=== PATIENT | male | born 1980 | race Caucasian/White ===

== ENCOUNTER 2020-12-25 13:53 | Inpatient (IN) | payer OTHER, SELFPAY ==
--- NOTE | ~2020-12-25 | XR_ITS ---
EXAMINATION: XR KNEE, LEFT CLINICAL INFORMATION: large reddened area behind his left knee, COMPARISON: None TECHNIQUE: Four views of the left knee. FINDINGS: Bones and soft tissues are normal. No fracture or joint effusion. Alignment is anatomic. Joint spaces are well maintained. No abnormal soft tissue calcification. XR/XR knee LT 4V IMPRESSION: Normal left knee.
--- NOTE | ~2020-12-25 | US_ITS ---
EXAMINATION: Left leg ultrasound soft tissue CLINICAL INFORMATION: Left leg cellulitis evaluate for abscess. COMPARISON: X-ray the left knee performed earlier same day. TECHNIQUE: Targeted ultrasound of the left popliteal fossa in the area of reported skin redness. FINDINGS: Edema noted in the subcutaneous soft tissues. No fluid collection noted. US/US extremity nonvascular IMPRESSION: Subcutaneous edema. No focal fluid collection
[2020-12-25 14:15] VITALS: BP 113/77; PULSE 78; RESP 20; TEMP 37.2; O2SAT 96; BMI 26.6
[2020-12-25 15:11] LABS: MANUAL DIFF FLAG NO
[2020-12-25 15:15] LABS: Basophils Percent Auto 0.5 % (0-2); Eosinophils Percent Auto 0.1 % (0-4); Hematocrit 45.2 % (42-52); Hemoglobin 15.2 g/dl (14.0-18.0); Imm Gran Abs Auto 0.03 X10*3/uL (0.00-0.03); Imm Gran Pct Auto 0.4 % (0.0-0.4); Lymphocytes Absolute Auto 1.3 X10*3/uL (1.2-4.9); Lymphocytes Percent Auto 17.4 % (20-40); Mean Corpuscular HGB Conc 33.6 g/dl (31.0-36.0); Mean Corpuscular Volume 86.1 fL (80-98); Mean Platelet Volume 9.8 fL (9.4-12.4); Monocytes Absolute Auto 0.6 X10*3/uL (0.1-1.2); Monocytes Percent Auto 8.4 % (2-11); Neutrophils Absolute Auto 5.3 X10*3/uL (2.0-8.3); Neutrophils Percent Auto 73.2 % (45-73); Platelet Count 154 X10*3/uL (160-400); Red Blood Count 5.25 X10*6/uL (4.60-5.80); Red Cell Distribution Width 12.8 % (11.0-16.0); White Blood Count 7.3 X10*3/uL (4.8-10.8)
[2020-12-25 15:34] LABS: Lactic Acid 0.8 mmol/L (0.5-2.0)
[2020-12-25 15:39] LABS: Alanine Aminotransferase 15 U/L (0-40); Albumin Level 4.6 g/dL (3.5-5.0); Alkaline Phosphatase 51 U/L (39-117); Anion Gap 14 (12-20); Aspartate Amino Transferase 20 U/L (5-37); Blood Urea Nitrogen 15 mg/dL (9-16); Calcium 9.4 mg/dL (8.4-10.2); Carbon Dioxide 26 mmol/L (22-29); Chloride 103 mmol/L (96-108); Creatinine Clr Calc Pharmacy 61.7; Estimated Glomerular Filt Rate 48; Glucose Random 89 mg/dL (60-115); Potassium 4.5 mmol/L (3.3-5.1); Sodium 138 mmol/L (135-145); Total Protein 7.4 g/dL (6.5-8.0)
--- NOTE | 2020-12-25 16:13 | ED_ITS ---
HPI - Skin/Abscess/Foreign Bdy General Chief complaint: Skin/Abscess/Foreign Body Stated complaint: cellulitis ?septic joint Time Seen by Provider: 12/25/20 14:30 Source: patient Mode of arrival: ambulatory Limitations: no limitations History of Present Illness HPI narrative: 40-year-old male with no significant past medical history presents with cellulitis to left lower extremity. Was treated with Bactrim and Keflex p.o. however the redness and pain has increased along with fevers, chills, and malaise. MD complaint: abscess/boil Onset (ago): day(s) Tetanus up to date: yes Location: LLE Severity: moderate Severity scale (1-10): 6 Quality: burning and aching Pain Consistency: constant Relieving factors: none Exacerbating factors: palpation and movement Associated symptoms: fever, chills and malaise Treatments prior to arrival: antibiotic Related Data Home Medications Medication Instructions Recorded Confirmed levothyroxine 75 mcg PO DAILY 12/25/20 12/25/20 Allergies Allergy/AdvReac Type Severity Reaction Status Date / Time No Known Allergies Allergy Verified 12/25/20 14:14 Review of Systems Review of Systems: Constitutional: Positive Fever, positive Chills ENT/Mouth: No Ear Pain, No Hoarseness, No sore throat Eyes: No Eye Pain, No Swelling, No Redness, No Foreign Body Cardiovascular: No Chest Pain, No SOB Respiratory: No Cough, No Dyspnea Gastrointestinal: No Nausea, No Vomiting, No Diarrhea, No abdominal Pain Genitourinary: No Dysuria, No Hematuria Musculoskeletal: positive left knee pain, No Myalgias, No Joint Swelling Skin: Positive cellulitis left knee, No Skin lacerations, No rash Neuro: No Weakness, No Numbness, No Paresthesias, No Loss of Consciousness, No Dizziness, No Headache Psych: No Anxiety/Panic, No Depression Heme/Lymph: no easy bruising, no Lymphadenopathy Endocrine: No Polyuria, No Polydipsia Yes all other systems are reviewed and are negative [facility] Past Medical History Attestation statement: The following information was validated with the patient. Source: old records reviewed Medical History Hypothyroidism Family History Family History (Updated 12/25/20 @ 17:52 by CLAIRE Dias) Mother CAD (coronary artery disease), Onset Age: 62 Social History Social History (Updated 12/25/20 @ 17:53 by CLAIRE Dias) Alcohol intake: current Alcohol intake frequency: a few times a week Alcohol type: beer Patient Tobacco Use Status: Never used Tobacco Use of substances other than those prescribed or required for medical reasons: No Advance Directives: No Advance Directives Information Provided: No Physical Exam Vital Signs: Vital Signs: Last Vital Signs Temp 98.5 F 12/25/20 18:01 Pulse 78 12/25/20 18:01 Resp 17 12/25/20 18:01 BP 132/83 12/25/20 18:01 Pulse Ox 98 12/25/20 18:01 Body Mass Index 26.6 Appearance: Alert. Oriented X3. Mild distress. Eyes: Pupils equal, round and reactive to light. ENT: Pharynx normal. Neck: Normal inspection. Neck supple. CVS: Normal heart rate and rhythm. Pulses normal. Respiratory: No respiratory distress. Breath sounds normal. Abdomen: Soft and nontender. Skin: 10 cm x 12 cm area of cellulitis to left popliteal, approximately 4 cm in diameter greater than surgical skin marker, Skin warm and dry. Normal skin col or. Normal skin turgor. Extremities: No lower extremity edema. Moves all extremities against resistance Neuro: No motor deficit. No sensory deficit. Cranial nerves 2-12 intact Course Course Course Narrative: 40-year-old male presents with worsening cellulitis to left lower extremity. Was on p.o. antibiotics for over 24 hours, Keflex and ceftriaxone, however the swelling, erythema, has increased along with pain, fever, chills and malaise. Will order doxycycline and vancomycin IV. Creat inine slightly elevated 1.59, no prior lab values for comparison, will resuscitate with 1 L of fluid. CBC and Chem 7 unremarkable however platelets are 154. X-ray does not have any concern for osteo or acute findings. 5:12 p.m. discussion with hospitalist Glenn, plan to admit for cellulitis. MDM - Skin/Abscess/Foreign Bdy Medical Records Attestation: I reviewed the patient's medical records. Lab Data Attestation: I reviewed the patient's lab results. Result diagrams: 12/25/20 15:01 12/25/20 15:01 Labs: Lab Results 12/25/20 12/25/20 12/25/20 Range/Units 15:01 15:01 15:01 WBC 7.3 (4.8-10.8) X10*3/uL RBC 5.25 (4.60-5.80) X10*6/uL Hgb 15.2 (14.0-18.0) g/dl Hct 45.2 (42-52) % MCV 86.1 (80-98) fL MCH 29.0 (27.0-33.0) pg MCHC 33.6 (31.0-36.0) g/dl RDW 12.8 (11.0-16.0) % Plt Count 154 L (160-400) X10*3/uL MPV 9.8 (9.4-12.4) fL Immature Gran % (Auto) 0.4 (0.0-0.4) % Neut % (Auto) 73.2 H (45-73) % Lymph % (Auto) 17.4 L (20-40) % [place] % (Auto) 8.4 (2-11) % Eos % (Auto) 0.1 (0-4) % Baso % (Auto) 0.5 (0-2) % Lymph # (Auto) 1.3 (1.2-4.9) X10*3/uL [place] # (Auto) 0.6 (0.1-1.2) X10*3/uL Eos # (Auto) 0.0 (0.0-0.4) X10*3/uL Baso # (Auto) 0.0 (0.0-0.2) X10*3/uL Abs Immat Gran (auto) 0.03 (0.00-0.03) X10*3/uL Absolute Neuts (auto) 5.3 (2.0-8.3) X10*3/uL Absolute Nucleated RBC 0.000 (0.0-0.012) X10*3/uL Nucleated RBC % (auto) 0.0 (0.0-0.2) /100WBC Sodium 138 (135-145) mmol/L Potassium 4.5 (3.3-5.1) mmol/L Chloride 103 (96-108) mmol/L Carbon Dioxide 26 (22-29) mmol/L Anion Gap 14 (12-20) BUN 15 (9-16) mg/dL Creatinine 1.59 H (0.5-1.4) mg/dL Estim Creat Clear Calc 61.7 Estimated GFR 48 Random Glucose 89 (60-115) mg/dL Lactic Acid 0.8 (0.5-2.0) mmol/L Calcium 9.4 (8.4-10.2) mg/dL Total Bilirubin 1.0 (0.0-1.0) mg/dL AST 20 (5-37) U/L ALT 15 (0-40) U/L Alkaline Phosphatase 51 (39-117) U/L Total Protein 7.4 (6.5-8.0) g/dL Albumin 4.6 (3.5-5.0) g/dL Imaging Data knee xray: Attestation: I personally reviewed and interpreted this imaging study as follows: Radiologist's impression: EXAMINATION: XR KNEE, LEFT CLINICAL INFORMATION: large reddened area behind his left knee, COMPARISON: None TECHNIQUE: Four views of the left knee. FINDINGS: Bones and soft tissues are normal. No fracture or joint effusion. Alignment is anatomic. Joint spaces are well maintained. No abnormal soft tissue calcification. XR/XR knee LT 4V IMPRESSION: Normal left knee. Critical Care Time Critical Care Time Critical Care Time: Yes Total Critical Care Time: 45 Attestation: I have personally provided critical care time exclusive of time spent on separately billable procedures. Time includes review of laboratory data, radiology results, discussion with consultants, and monitoring for potential decompensation. Interventions were performed as documented. Discharge Plan Discharge Clinical Impression: Cellulitis Qualifiers: Site of cellulitis: extremity Site of cellulitis of extremity: lower extremity Laterality: left Qualified Code(s): L03.116 - Cellulitis of left lower limb Patient Disposition: Admitted As Inpatient
[2020-12-25] MEDS: Doxycycline Hyclate 100 MG in 0.9 % Sodium Chloride 250 ML 166.67 MG IV (17:45)
--- NOTE | 2020-12-25 17:48 | P.HPHOSP_ITS ---
History of Present Illness Date of Service: 12/25/20 Chief Complaint: Left leg redness and swelling this is a 40-year-old male presents to the emergency department with increasing redness and swelling of his left leg. MondayDecember 20 he notice redness and swelling of his left lower extremity behind his left knee. This has been increasing over the past several days. He denies any bug bites, open wounds or trauma to the area. There has been no drainage. Yesterday he went to urgent care because the area of redness has increased and he it was becoming painful. He was diagnosed with cellulitis and given an IM dose of ceftriaxone in the office and discharged home with Keflex and Bactrim. Overnight he had worsening fevers and chills and this morning he noticed that the redness had spread far outside the marked area. He denies any known tick exposures himself although he has recently pulled ticks off of his children. In the emergency department he was afebrile. Lab work revealed no leukocytosis. Chemistry was significant for renal dysfunction with a creatinine of 1.59. he was treated with IV antibiotics and the decision was made to admit him to the hospital for further management. Review of Systems Review of Systems: Yes all other systems are reviewed and are negative Constitutional: Constitutional: Reports chills and Reports fever(s) Cardiovascular: Cardiovascular: Denies chest pain Respiratory: Respiratory: Denies cough Gastrointestinal: Gastrointestinal: Denies abdominal pain [facility] Medical History Hypothyroidism Functional capacity: independent ambulation Family History (Updated 12/25/20 @ 17:52 by CLAIRE Dias) Mother CAD (coronary artery disease), Onset Age: 62 Social History (Updated 12/25/20 @ 17:53 by CLAIRE Dias) Alcohol intake: current Alcohol intake frequency: a few times a week Alcohol type: beer Patient Tobacco Use Status: Never used Tobacco Use of substances other than those prescribed or required for medical reasons: No Advance Directives: No Advance Directives Information Provided: No Meds Allergies Allergy/AdvReac Type Severity Reaction Status Date / Time No Known Allergies Allergy Verified 12/25/20 14:14 Active Medications: Current Medications Generic Name Dose Route Start Last Admin Trade Name Freq PRN Reason Stop Dose Admin Doxycycline Hyclate 100 mg/ 250 mls @ 166.67 mls/hr 12/25/20 16:27 12/25/20 17:45 Sodium Chloride IV 12/25/20 17:56 166.67 mls/hr ONCE ONE Administration Lactated Ringer's 1,000 mls @ 100 mls/hr 12/25/20 17:46 Lr IVCONT .Q10H OLY Physical Exam Vital Signs and Narrative: Vital Signs: Last Vital Signs Temp 98.9 F 12/25/20 14:15 Pulse 78 12/25/20 14:15 Resp 20 12/25/20 14:15 BP 113/77 12/25/20 14:15 Pulse Ox 96 12/25/20 14:15 Body Mass Index 26.6 Const: Nutritional Appearance: well nourished Orientation/consciousness: patient oriented x3 HENMT: Head: Yes normocephalic and Yes atraumatic Eyes: Sclerae: sclerae normal Chest: Chest palpation & inspection: normal inspection of the chest Resp: Effort & Inspection: normal respiratory effort and no respiratory distress Auscultation: clear to auscultation bilaterally Cardio: Rate: regular rate Rhythm: regular rhythm GI: Palpation (GI): Soft to palpation and nontender Skin: Other: Neuro: General: patient oriented x3 Cranial nerves: Yes CN's II-XII intact bilaterally and Yes Bilaterally intact EOM present Results Labs CBC and Chem 7: 12/25/20 15:01 12/25/20 15:01 Labs: Laboratory Results - last 24 hr 12/25/20 12/25/20 12/25/20 15:01 15:01 15:01 MCV 86.1 MCH 29.0 MCHC 33.6 RDW 12.8 Plt Count 154 L MPV 9.8 Immature Gran % (Auto) 0.4 Neut % (Auto) 73.2 H Lymph % (Auto) 17.4 L [place] % (Auto) 8.4 Eos % (Auto) 0.1 Baso % (Auto) 0.5 Lymph # (Auto) 1.3 [place] # (Auto) 0.6 Eos # (Auto) 0.0 Baso # (Auto) 0.0 Abs Immat Gran (auto) 0.03 Absolute Neuts (auto) 5.3 Absolute Nucleated RBC 0.000 Nucleated RBC % (auto) 0.0 Anion Gap 14 Estim Creat Clear Calc 61.7 Estimated GFR 48 Random Glucose 89 Lactic Acid 0.8 Calcium 9.4 Total Bilirubin 1.0 AST 20 ALT 15 Alkaline Phosphatase 51 Total Protein 7.4 Albumin 4.6 Imaging Radiologist's Impressions: Impressions Knee X-Ray 12/25/20 14:30 IMPRESSION: Normal left knee. Assessment and Plan (1) Cellulitis: Qualifiers: Laterality: left Site of cellulitis: extremity Site of cellulitis of extremity: lower extremity Qualified Code(s): L03.116 - Cellulitis of left lower limb Status: Acute This is a healthy 40-year-old male who presents to the emergency department with increasing redness and swelling of his left lower extremity after being diagnosed with cellulitis. Left leg erythema likely cellulitis will check for lyme no evidence of sepsis -IV doxycyline will treat for both -soft tissue us to rule out abscess -pain control Renal Insufficiency in the setting of Bactrim use likely represents PURA although no baseline labs are available for comparison -IVF -follow BMP hypothyroidism continue meds when med rec completed dvt ppx - lovenox code status - full code Attending: Dr. Elizabeth Quality Stroke Does the patient have a stroke diagnosis?: No VTE Prior VTE?: No VTE Risk Level:: Medical - moderate - high VTE Device Contraindication: Treatment Not Indicated VTE Drug Contraindication: N/A - Med Ordered
--- NOTE | 2020-12-25 17:51 | PM.EVENT ---
Event Note Date of Service: 12/27/20 Event Note: addendum to H+P by CLAIRE Narvaez, 12/25/20: I interviewed and examined the patient. I discussed their presentation and management with the mid-level provider. I reviewed the history and physical and agree with the documentation, with the following additions and corrections: 40yo generally healthy M, PMHx only significant for hypothyroidism, presenting with erythema of L popliteal fossa. Given ceftriaxone IM + prescribed cephalexin + SMX/TMP in Urgent Care but developed fever to 102.5 and erythema is spreading centrifugally. No known tickbite but could certainly have been bitten; recently pulled ticks off of his children. Found to have renal dysfunction, SCr 1.59. Exam notable for round, well-demarcated area of erythema L popliteal fossa without central clearing and without purulence. Impression is of nonpurulent cellulitis versus erythema migrans. Would treat with doxycycline, give IV fluids + recheck BMP. Check Lyme titer though may be negative in early Lyme.
[2020-12-25 18:01] VITALS: BP 132/83; PULSE 78; RESP 17; TEMP 36.9; O2SAT 98
--- NOTE | 2020-12-25 18:06 | PHA.MEDREC ---
Pharmacy Consult ? Medication Reconciliation Pharmacy has completed the medication reconciliation.
[2020-12-25 18:27] LABS: COVID-19 Test Negative (Negative); IDNOW Serial# 9DD0AD1C
[2020-12-25] MEDS: vancomycin HCL 1,000 MG in 0.9 % Sodium Chloride 250 ML 270 MG IV (19:39)
[2020-12-25] MEDS: Lactated Ringers 1,000 ML 100 ML IVCONT (21:08)
--- NOTE | 2020-12-25 21:08 | PC.NURSE ---
LR UP AND RUNNING ON PUMP AT 100ML/HR PER EMAR. PT RESTING WITH FAMILY AT BEDSIDE. WILL CONTINUE TO MONITOR PT.
--- NOTE | 2020-12-26 00:25 | PC.NURSE ---
report to JUVE Kam. Pt to floor in w/c upon transfer to floor.
--- NOTE | 2020-12-26 00:52 | PC.NURSE ---
PT TO ROOM AT THIS TIME. PT LEFT ED IN NAD.
[2020-12-26 01:01] VITALS: BP 126/72; PULSE 76; RESP 18; TEMP 36.6; O2SAT 95
[2020-12-26] MEDS: Enoxaparin Sodium 40 MG/0.4 ML SYRINGE SUBCUT (02:15)
[2020-12-26 04:20] VITALS: BP 114/60; PULSE 72; RESP 18; TEMP 37.1; O2SAT 96
[2020-12-26] MEDS: Doxycycline Hyclate 100 MG in 0.9 % Sodium Chloride 250 ML 166.67 MG IV (05:01)
[2020-12-26] MEDS: Lactated Ringers 1,000 ML 100 ML IVCONT ×2 (05:03→16:54)
[2020-12-26 05:45] LABS: Anion Gap 11 (12-20); Blood Urea Nitrogen 14 mg/dL (9-16); Calcium 8.7 mg/dL (8.4-10.2); Carbon Dioxide 26 mmol/L (22-29); Chloride 106 mmol/L (96-108); Estimated Glomerular Filt Rate 51; Glucose Random 113 mg/dL (60-115); Potassium 4.2 mmol/L (3.3-5.1); Sodium 139 mmol/L (135-145)
[2020-12-26 07:11] VITALS: BP 118/74; PULSE 68; RESP 18; TEMP 36.6; O2SAT 96
--- NOTE | 2020-12-26 10:24 | P.PNIM_ITS ---
Subjective Subjective Date of Service: 12/26/20 <CLAIRE Dias - Last Filed: 12/26/20 10:30> 12/26/20 <Carlos Vazquez MD - Last Filed: 12/26/20 12:15> Interval History: seen and examined this morning no overnight events Reports improvement in pain in leg Denies fevers or chills at this time <CLAIRE Dias - Last Filed: 12/26/20 10:30> Review of Systems Review of Systems: Yes all other systems are reviewed and are negative <CLAIRE Dias - Last Filed: 12/26/20 10:30> Constitutional Constitutional: Denies chills and Denies fever(s) <CLAIRE Dias - Last Filed: 12/26/20 10:30> Cardiovascular Cardiovascular: Denies chest pain <CLAIRE Dias - Last Filed: 12/26/20 10:30> Respiratory Respiratory: Denies cough <CLAIRE Dias - Last Filed: 12/26/20 10:30> Gastrointestinal Gastrointestinal: Denies abdominal pain <CLAIRE Dias - Last Filed: 12/26/20 10:30> Physical Exam Vital Signs: Vital Signs: Last Vital Signs Temp 98 F 12/26/20 07:11 Pulse 68 12/26/20 07:11 Resp 18 12/26/20 07:11 BP 118/74 12/26/20 07:11 Pulse Ox 96 12/26/20 07:11 Body Mass Index 26.6 <CLAIRE Dias - Last Filed: 12/26/20 10:30> Const: Nutritional Appearance: well nourished <CLAIRE Dias - Last Filed: 12/26/20 10:30> Orientation/consciousness: patient oriented x3 <CLAIRE Dias - Last Filed: 12/26/20 10:30> HENMT: Head: Yes normocephalic and Yes atraumatic <CLAIRE Dias - Last Filed: 12/26/20 10:30> Eyes: Sclerae: sclerae normal <CLAIRE Dias Last Filed: 12/26/20 10:30> Chest: Chest palpation & inspection: normal inspection of the chest <CLAIRE Dias - Last Filed: 12/26/20 10:30> Resp: Effort & Inspection: normal respiratory effort and no respiratory di stress <CLAIRE Dias - Last Filed: 12/26/20 10:30> Auscultation: clear to auscultation bilaterally <CLAIRE Dias - Last Filed: 12/26/20 10:30> Cardio: Rate: regular rate <CLAIRE Dias - Last Filed: 12/26/20 10:30> Rhythm: regular rhythm <CLAIRE Dias - Last Filed: 12/26/20 10:30> GI: Palpation (GI): Soft to palpation and nontender <CLAIRE Dias - Last Filed: 12/26/20 10:30> Skin: Other: <CLAIRE Dias - Last Filed: 12/26/20 10:30> Neuro: General: patient oriented x3 <CLAIRE Dias - Last Filed: 12/26/20 10:30> Cranial nerves: Yes CN's II-XII intact bilaterally and Yes Bilaterally intact EOM present <CLAIRE Dias - Last Filed: 12/26/20 10:30> Objective Data Current Medications Generic Name Dose Route Start Last Admin Trade Name Freq PRN Reason Stop Dose Admin Acetaminophen 650 mg 12/26/20 00:17 Acetaminophen 325 Mg Tablet PO Q6H PRN Pain, Mild (Pain Scale 1-3) Docusate Sodium 100 mg 12/26/20 00:17 Docusate Sodium 100 Mg Capsule PO DAILY PRN Constipation Enoxaparin Sodium 40 mg 12/26/20 02:00 12/26/20 02:15 Enoxaparin Sodium 40 Mg/0.4 Ml Syringe SUBCUT 40 mg Q24H OLY Administration Lactated Ringer's 1,000 mls @ 100 mls/hr 12/25/20 17:46 12/26/20 05:03 Lr IVCONT 100 mls/hr .Q10H OLY Administration Doxycycline Hyclate 100 mg/ 250 mls @ 166.67 mls/hr 12/26/20 04:00 12/26/20 07:05 Sodium Chloride IV Infused Q12H OLY Infusion Ondansetron HCl 4 mg 12/26/20 00:17 Ondansetron Hcl 4 Mg/2 Ml Vial IVPUSH Q8H PRN Nausea and Vomiting Oxycodone HCl 5 mg 12/26/20 00:17 Oxycodone Hcl Immed Release 5 Mg Tablet PO Q6H PRN Pain, Moderate (Pain Scale 4-6 Pharmacy Consult 1 each 12/25/20 17:47 Consult Rx Perform Med Rec MISCELLANE ONCE PRN Consult order Sodium Chloride 3 ml 12/26/20 00:17 12/26/20 08:22 0.9 % Sodium Chloride Flush 3 Ml Syringe IVFLUSH Not Given QSHIFT OLY <CLAIRE Dias - Last Filed: 12/26/20 10:30> Labs CBC & Chem 7: : 12/25/20 15:01 12/26/20 04:04 <CLAIRE Dias - Last Filed: 12/26/20 10:30> Labs: Laboratory Results - last 24 hr 12/25/20 12/25/20 12/25/20 15:01 15:01 15:01 WBC 7.3 RBC 5.25 Hgb 15.2 Hct 45.2 MCV 86.1 MCH 29.0 MCHC 33.6 RDW 12.8 Plt Count 154 L MPV 9.8 Immature Gran % (Auto) 0.4 Neut % (Auto) 73.2 H Lymph % (Auto) 17.4 L [place] % (Auto) 8.4 Eos % (Auto) 0.1 Baso % (Auto) 0.5 Lymph # (Auto) 1.3 [place] # (Auto) 0.6 Eos # (Auto) 0.0 Baso # (Auto) 0.0 Abs Immat Gran (auto) 0.03 Absolute Neuts (auto) 5.3 Absolute Nucleated RBC 0.000 Nucleated RBC % (auto) 0.0 Sodium 138 Potassium 4.5 Chloride 103 Carbon Dioxide 26 Anion Gap 14 BUN 15 Creatinine 1.59 H Estim Creat Clear Calc 61.7 Estimated GFR 48 Random Glucose 89 Lactic Acid 0.8 Calcium 9.4 Total Bilirubin 1.0 AST 20 ALT 15 Alkaline Phosphatase 51 Total Protein 7.4 Albumin 4.6 COVID-19 (NITO) COVID-19 Clin Com 12/25/20 12/26/20 18:00 04:04 WBC RBC Hgb Hct MCV MCH MCHC RDW Plt Count MPV Immature Gran % (Auto) Neut % (Auto) Lymph % (Auto) [place] % (Auto) Eos % (Auto) Baso % (Auto) Lymph # (Auto) [place] # (Auto) Eos # (Auto) Baso # (Auto) Abs Immat Gran (auto) Absolute Neuts (auto) Absolute Nucleated RBC Nucleated RBC % (auto) Sodium 139 Potassium 4.2 Chloride 106 Carbon Dioxide 26 Anion Gap 11 L BUN 14 Creatinine 1.51 H Estim Creat Clear Calc 65.0 Estimated GFR 51 Random Glucose 113 Lactic Acid Calcium 8.7 D Total Bilirubin AST ALT Alkaline Phosphatase Total Protein Albumin COVID-19 (NITO) Negative COVID-19 Clin Com See Note <CLAIRE Dias - Last Filed: 12/26/20 10:30> Imaging knee xray: Radiologist's impression: Impressions Knee X-Ray 12/25/20 14:30 IMPRESSION: Normal left knee. Extremity Ultrasound 12/25/20 17:46 IMPRESSION: Subcutaneous edema. No focal fluid collection <CLAIRE Dias - Last Filed: 12/26/20 10:30> Quality Stroke Does the patient have a stroke diagnosis?: No <CLAIRE Dias - Last Filed: 12/26/20 10:30> VTE Prior VTE?: No <CLAIRE Dias - Last Filed: 12/26/20 10:30> VTE Risk Level:: Medical - moderate - high <CLAIRE Dias - Last Filed: 12/26/20 10:30> VTE Device Contraindication: Treatment Not Indicated <CLAIRE Dias - Last Filed: 12/26/20 10:30> VTE Drug Contraindication: N/A - Med Ordered <CLAIRE Dias - Last Filed: 12/26/20 10:30> Assessment and Plan (1) Cellulitis: Status: Acute <CLAIRE Dias - Last Filed: 12/26/20 10:30> Assessment and Plan: This is a healthy 40-year-old male who presents to the emergency department with increasing redness and swelling of his left lower extremity after being diagnosed with cellulitis. Left leg cellulitis erythema and pain improving will check for lyme, pending no evidence of sepsis -Continue IV doxycyline will treat for both -soft tissue us showed no fluid collection -pain control Renal Insufficiency in the setting of Bactrim use not much change in creatinine initially thought to represent PURA although possible component of CKD -Continue IVF -follow BMP hypothyroidism -continue synthroid dvt ppx - lovenox code status - full code Attending: Dr. Vazquez <CLAIRE Dias - Last Filed: 12/26/20 10:30>
[2020-12-26] MEDS: Levothyroxine Sodium 75 MCG TABLET PO (10:48)
[2020-12-26 11:00] VITALS: BP 123/72; PULSE 69; RESP 16; TEMP 36.4; O2SAT 96
--- NOTE | 2020-12-26 12:22 | MHC.CM.PN ---
CM MET WITH PT WHO REPORTS HE LIVES AT HOME WITH HIS AND DAUGHTER AND IS INDEPENDENT WITH ALL CARE AND ACTIVE IN [place] [employer]. PT REPORTS HE DOES NOT HAVE A PCP YET HE JUST [facility] [facility] A COUPLE MONTHS AGO. PT COMPLETED A HCP TODAY NAMING HIS , CHERYL HIS AGENT. RIGHTS DELIVERED CURRENT [place] PLAN IS HOME WITH NO SERVICES PT WILL SELF ARRANGE TRANSPORT
[2020-12-26 15:30] VITALS: BP 123/70; PULSE 74; RESP 18; TEMP 37.2; O2SAT 95
[2020-12-26] MEDS: 0.9 % Sodium Chloride Flush 3 ML SYRINGE IVFLUSH (16:47)
[2020-12-26] MEDS: Doxycycline Hyclate 100 MG in 0.9 % Sodium Chloride 250 ML IV (16:47)
[2020-12-27] VITALS: BP 122/62; PULSE 78; RESP 18; TEMP 36.8; O2SAT 95
[2020-12-27] MEDS: Lactated Ringers 1,000 ML 100 ML IVCONT (00:18)
[2020-12-27] MEDS: Enoxaparin Sodium 40 MG/0.4 ML SYRINGE SUBCUT (03:36)
[2020-12-27] MEDS: Doxycycline Hyclate 100 MG in 0.9 % Sodium Chloride 250 ML IV (03:36)
[2020-12-27] MEDS: Levothyroxine Sodium 75 MCG TABLET PO (05:54)
[2020-12-27 07:08] VITALS: BP 118/54; PULSE 82; RESP 20; TEMP 36.6; O2SAT 98
[2020-12-27 09:08] LABS: Anion Gap 12 (12-20); Blood Urea Nitrogen 11 mg/dL (9-16); Carbon Dioxide 26 mmol/L (22-29); Chloride 106 mmol/L (96-108); Creatinine Clr Calc Pharmacy 86.8; Estimated Glomerular Filt Rate > 60; Glucose Random 142 mg/dL (60-115); Potassium 4.2 mmol/L (3.3-5.1); Sodium 140 mmol/L (135-145)
--- NOTE | 2020-12-27 10:05 | PM.DS ---
DS: Providers Provider Date of Service: 12/27/20 <CLAIRE Dias - Last Filed: 12/27/20 10:22> Date of admission: 12/25/20 17:46 <CLAIRE Dias - Last Filed: 12/27/20 10:22> Primary care physician: Drew Physician <CLAIRE Dias - Last Filed: 12/27/20 10:22> DS: Diagnosis Discharge Diagnosis (1) Cellulitis: Status: Acute <CLAIRE Dias Last Filed: 12/27/20 10:22> (2) PURA (acute kidney injury): Status: Acute <CLAIRE Dias Last Filed: 12/27/20 10:22> DS: Medications Discharge Medications Home Medications: Home Medications Medication Instructions Recorded Confirmed levothyroxine 75 mcg PO DAILY 12/25/20 12/25/20 Previous Rx's Medication Instructions Recorded doxycycline hyclate 100 mg PO BID 5 Days #10 tab 12/27/20 <CLAIRE Dias Last Filed: 12/27/20 10:22> DS: Summary Hospital Course Hospital Course: From H&P on day of admission This is a 40-year-old male presents to the emergency department with increasing redness and swelling of his left leg. MondayDecember 20 he notice redness and swelling of his left lower extremity behind his left knee. This has been increasing over the past several days. He denies any bug bites, open wounds or trauma to the area. There has been no drainage. Yesterday he went to urgent care because the area of redness has increased and he it was becoming painful. He was diagnosed with cellulitis and given an IM dose of ceftriaxone in the office and discharged home with Keflex and Bactrim. Overnight he had worsening fevers and chills and this morning he noticed that the redness had spread far outside the marked area. He denies any known tick exposures himself although he has recently pulled ticks off of his children. In the emergency department he was afebrile. Lab work revealed no leukocytosis. Chemistry was significant for renal dysfunction with a creatinine of 1.59. he was treated with IV antibiotics and the decision was made to admit him to the hospital for further management Left leg cellulitis: Failed outpatient treatment with bactrim and keflex. He was admitted to the medical/surgical floor and started on IV doxycycline. Chills resolved. Erythema and swelling have gradually improved. The discomfort in his left knee had has also improved. He is now stable for discharge home. He will be discharged home to complete course of doxycycline. Lyme screening was checked and the results are pending at the time of discharge. Addendum Patient seen examined case discussed with APC, agree with above treatment plan, recommended patient to return to check with no improvement in symptoms over the course of next 5-7 days or if noted to have worsening redness, swelling, fever or chills, also recommend to minimize over activity and exertion. <CLAIRE Dias Last Filed: 12/27/20 10:22> Time Spent with Patient Time attestation: Total time spent providing and/or coordinating discharge services: <CLAIRE Dias Last Filed: 12/27/20 10:22> Discharge coordination time: Greater than 30 minutes <CLAIRE Dias Last Filed: 12/27/20 10:22> Quality: Stroke Does the patient have a stroke diagnosis?: No <CLAIRE Dias Last Filed: 12/27/20 10:22> Physical Exam Vital Signs: Vital Signs: Last Vital Signs Temp 98 F 12/27/20 07:08 Pulse 82 12/27/20 07:08 Resp 20 12/27/20 07:08 BP 118/54 L 12/27/20 07:08 Pulse Ox 98 12/27/20 07:08 Body Mass Index 26.6 <CLAIRE Dias Last Filed: 12/27/20 10:22> Const: Nutritional Appearance: well nourished <CLAIRE Dias Last Filed: 12/27/20 10:22> Orientation/consciousness: patient oriented x3 <CLAIRE Dias Last Filed: 12/27/20 10:22> HENMT: Head: Yes normocephalic and Yes atraumatic <CLAIRE Dias Last Filed: 12/27/20 10:22> Eyes: Sclerae: sclerae normal <CLAIRE Dias Last Filed: 12/27/20 10:22> Chest: Chest palpation & inspection: normal inspection of the chest <CLAIRE Dias - Last Filed: 12/27/20 10:22> Resp: Effort & Inspection: normal respiratory effort and no respiratory distress <CLAIRE Dias - Last Filed: 12/27/20 10:22> Cardio: Rate: regular rate <CLAIRE Dias - Last Filed: 12/27/20 10:22> Rhythm: regular rhythm <CLAIRE Dias - Last Filed: 12/27/20 10:22> GI: Palpation (GI): Soft to palpation and nontender <CLAIRE Dias - Last Filed: 12/27/20 10:22> Skin: Other: left leg erythema, most prominent to posterior knee/popliteal fossa improving. swelling improving. <CLAIRE Dias - Last Filed: 12/27/20 10:22> Neuro: General: patient oriented x3 <CLAIRE Dias - Last Filed: 12/27/20 10:22> Cranial nerves: Yes CN's II-XII intact bilaterally and Yes Bilaterally intact EOM present <CLAIRE Dias Last Filed: 12/27/20 10:22> DS: Data Data Completed and Pending Labs on day of discharge: Laboratory Results - last 24 hr 12/27/20 08:25 Sodium 140 Potassium 4.2 Chloride 106 Carbon Dioxide 26 Anion Gap 12 BUN 11 Creatinine 1.13 Estim Creat Clear Calc 86.8 Estimated GFR > 60 Random Glucose 142 H Calcium 9.0 Preliminary micro results at discharge 12/25/20 17:38 Blood Culture - Preliminary Blood - Venous No growth after 24 hours. 12/25/20 15:01 Blood Culture - Preliminary Blood - Venous No growth after 24 hours. <CLAIRE Dias - Last Filed: 12/27/20 10:22> Discharge Plan Discharge Patient Disposition: Home, Self-Care <CLAIRE Dias - Last Filed: 12/27/20 10:22> Discharge Diagnosis: Left leg cellulitis PURA <CLAIRE Dias Last Filed: 12/27/20 10:22> Left leg cellulitis PURA <Laurie Katz MD - Last Filed: 12/27/20 12:24> Referrals: Physician,None [Primary Care Provider] - 1 Week <CLAIRE Dias - Last Filed: 12/27/20 10:22> Discharge Medications: New doxycycline hyclate 100 mg tablet 100 mg PO BID 5 Days Qty: 10 RF: 0 Continued levothyroxine 75 mcg Tablet 75 mcg PO DAILY RF: 0 <CLAIRE Dias - Last Filed: 12/27/20 10:22> Discharge Orders: Discharge Order (Routine); Ordered 12/27/20 Ordered By: Natacha Narvaez <CLAIRE Dias - Last Filed: 12/27/20 10:22> Activity on Discharge: As tolerated <CLAIRE Dias - Last Filed: 12/27/20 10:22> As tolerated <Laurie Katz MD - Last Filed: 12/27/20 12:24> Stand Alone Forms: Patient Portal Discharge page <CLAIRE Dias - Last Filed: 12/27/20 10:22> Care Plan Goals: Resolution of cellulitis <CLAIRE Dias - Last Filed: 12/27/20 10:22> Health Concerns: Left leg cellulitis PURA <CLAIRE Dias - Last Filed: 12/27/20 10:22> Plan of Treatment: Cellulitis - continue entire course of antibiotics. If swelling worsens call [facility] or return to ER Lyme screening is pending at the time of discharge. You can log on to patient portal to review results PURA - kidney function has returned to normal. No further workup is necessary. <CLAIRE Dias - Last Filed: 12/27/20 10:22> Assessment: Improving left leg cellulitis; Resolved acute kidney injury <CLAIRE Dias - Last Filed: 12/27/20 10:22> Patient Instructions: Cellulitis (GEN) <CLAIRE Dias - Last Filed: 12/27/20 10:22> Discharge Date/Time: 12/27/20 10:50 <CLAIRE Dias - Last Filed: 12/27/20 10:22>
--- NOTE | 2020-12-27 10:30 | MHC.CM.PN ---
PT CLEARED FOR DC TODAY, HOME WITH NO SERVICES. PT TO SELF ARRANGE TRANSPORTATION
[2020-12-28 21:25] LABS: Lyme Abs Screen <0.90 index
== END 2020-12-27 10:50 | disposition home or self-care (01) | DRG 603 ==
LOC: HO.ED 17:47 → HO.EDOVER 17:54 → HO.IMC 23:35
PROVIDERS: Emergency Medicine; Nurse Practitioner Family; Admitting Provider Physician Assistant Medical; Emergency Provider Internal Medicine; Visit Provider Hospitalist
DX: L03.116 Cellulitis of left lower limb (principal); E03.9 Hypothyroidism, unspecified; Z20.822 Contact with and (suspected) exposure to COVID-19; N28.9 Disorder of kidney and ureter, unspecified; N18.9 Chronic kidney disease, unspecified; Z79.890 Hormone replacement therapy
CPT/HCPCS: 36415; 73564; 76882; 80048; 80053; 83605; 85025; 86617; 86618; 87040; 87635; 99285; J1650; J3370

== ENCOUNTER 2021-04-09 08:35 | Outpatient (REF) | payer OTHER, SELFPAY ==
[2021-04-09 11:34] LABS: Appearance Urine CLEAR; Color Urine YELLOW; Glucose Urine UA NEG (NEG); Leukocyte Esterase Urine NEG (NEG); Nitrite Urine NEG (NEG); Specific Gravity - Urine <= 1.005 (1.005-1.025); Urine Blood NEG (NEG); Urine Ketones NEG (NEG); Urine Protein NEG (NEG-TRACE)
[2021-04-09 11:47] LABS: Cholesterol 199 mg/dL; HDL Cholesterol 42 mg/dL; LDL Cholesterol Calculated 138 mg/dl; Triglycerides 96 mg/dL
[2021-04-09 12:10] LABS: Thyroid Stimulating Hormone 9.48 uIU/mL (0.32-4.0)
== END 2021-04-09 08:36 | disposition home or self-care (01) ==
LOC: HO.HMGCLDS 08:35
PROVIDERS: PCP Internal Medicine; Visit Provider Internal Medicine
DX: L03.90 Cellulitis, unspecified (principal); N17.9 Acute kidney failure, unspecified; E03.9 Hypothyroidism, unspecified
CPT/HCPCS: 36415; 80061; 81003; 84443

== ENCOUNTER 2021-05-25 12:28 | Outpatient (REF) | payer OTHER, SELFPAY ==
[2021-05-25 14:36] LABS: Thyroid Stimulating Hormone 3.16 uIU/mL (0.32-4.0)
== END 2021-05-25 12:29 | disposition home or self-care (01) ==
LOC: HO.HMGCLDS 12:28
PROVIDERS: PCP Internal Medicine; Visit Provider Internal Medicine
DX: E03.9 Hypothyroidism, unspecified (principal)
CPT/HCPCS: 36415; 84443

== ENCOUNTER 2022-05-17 07:32 | Outpatient (REF) | payer OTHER, SELFPAY ==
[2022-05-17 07:58] LABS: Hematocrit 43.1 % (42.0-52.0); Hemoglobin 14.5 g/dl (14.0-18.0); Mean Corpuscular HGB Conc 33.6 g/dl (31.0-36.0); Mean Corpuscular Hemoglobin 29.5 pg (27.0-33.0); Mean Corpuscular Volume 87.8 fL (80.0-98.0); Platelet Count 199 X10*3/uL (160-400); Red Blood Count 4.91 X10*6/uL (4.60-5.80); Red Cell Distribution Width 12.4 % (11.0-16.0); White Blood Count 4.5 X10*3/uL (4.8-10.8)
[2022-05-17 08:39] LABS: Erythrocyte Sedimentation Rate 2 MM/HR (0-15)
[2022-05-17 08:49] LABS: Alanine Aminotransferase 18 U/L (0-40); Albumin Level 4.3 g/dL (3.5-5.0); Alkaline Phosphatase 39 U/L (39-117); Anion Gap 11 (12-20); Aspartate Amino Transferase 17 U/L (5-37); Bilirubin Direct 0.2 mg/dL (0.0-0.5); Bilirubin Total 0.7 mg/dL (0.0-1.0); Blood Urea Nitrogen 13 mg/dL (9-16); Calcium 9.3 mg/dL (8.4-10.2); Carbon Dioxide 27 mmol/L (22-29); Chloride 107 mmol/L (96-108); Cholesterol 197 mg/dL; Estimated Glomerular Filt Rate > 60; Glucose Random 109 mg/dL (60-115); HDL Cholesterol 38 mg/dL; LDL Cholesterol Calculated 135 mg/dl; Potassium 4.7 mmol/L (3.3-5.1); Sodium 140 mmol/L (135-145); Thyroid Stimulating Hormone 2.77 uIU/mL (0.32-4.0); Total Protein 6.4 g/dL (6.5-8.0); Triglycerides 124 mg/dL
== END 2022-05-17 07:33 | disposition home or self-care (01) ==
LOC: HO.LAB 07:32
PROVIDERS: PCP Internal Medicine; Visit Provider Internal Medicine
DX: Z00.00 Encounter for general adult medical examination without abnormal findings (principal)
CPT/HCPCS: 36415; 80048; 80061; 80076; 84443; 85027; 85652

== ENCOUNTER 2023-08-28 08:18 | Outpatient (AMB) | payer OTHER, SELFPAY ==
[2023-08-28 08:24] VITALS: BP 142/88; PULSE 82; O2SAT 96; BMI 27.5
--- NOTE | 2023-08-28 08:24 | A.OFFPC_ITS ---
Vital Signs 08/28/23 08:24 Height 5 ft 7.5 in Weight 178 lb BMI 27.5 BP 142/88 H Blood Pressure Location Lt brachial Position Sitting Pulse 82 Pulse Source Pulse Oximeter Pulse Oximetry (%) 96 Oxygen Delivery Method Room Air Intake Visit Reasons: Sick Allergies No Known Allergies Allergy (Verified 08/28/23 09:06) Medication List - Last Reconciled 08/28/23 by Oc Black MD fluticasone propionate 50 mcg/actuation (Flonase Allergy Relief) 1 spray intranasal DAILY 30 days levothyroxine 75 mcg PO DAILY Tobacco use date assessed: 08/28/23 Dental Screening Dental Screen Date: 08/28/23 Did you have a dental visit in the last 12 months?: Yes Did you have a dental problem in the last 6 months where you did not have access to dental care?: No Was dental information given to patient?: Patient has dentist HPI Sick HPI Details 43-year-old male presents to the office for a sick visit. Patient has been having a constant running nose, nasal congestion and headaches for the past many months. Flonase that has been prescribed to him is not helping much. He has also been using Afrin with some relief. Continues to have intermittent headaches. Patient reports that he is unable to exercise outside d ue to his nasal symptoms. In addition he would like to get blood work done for his thyroid condition. Requests a refill on his medications. Able to function and do activities of daily living. FORMERLY [facility] Medical History (Updated 08/28/23 @ 09:11 by Oc Black MD) Allergic rhinitis Hypothyroidism Surgical History No pertinent past surgical history Family History Mother CAD (coronary artery disease), Onset Age: 62 Mental health disorder Brother Mental health disorder Social History Household Members: Spouse and Children Housing: House Do you presently have visiting nurse or other home services: No Alcohol intake: current Alcohol intake frequency: a few times a week Alcohol type: beer Patient Tobacco Use Status: Former Tobacco user Tobacco use type: Cigarette e-Cigarette/Vaping Use: Never Used Second Hand Smoke Exposure: Yes service: Yes Current occupational status: employed and other Cognitive needs: No Hearing needs: No Vision needs: Yes Questionnaire PHQ-9 Over the last 2 weeks, how often have you been bothered by any of the following problems? 1. Little interest or pleasure in doing things: not at all 2. Feeling down, depressed, or hopeless: not at all 3. Trouble falling or staying asleep, or sleeping too much: not at all 4. Feeling tired or having little energy: not at all 5. Poor appetite or overeating: not at all 6. Feeling bad about yourself - or that you are a failure or have let yourself or your family down: not at all 7. Trouble concentrating on things, such as reading the newspaper or watching television: not at all 8. Moving or speaking so slowly that other people could have noticed. Or the opposite - being so fidgety or restless that you have been moving around a lot more than usual: not at all 9. Thoughts that you would be better off or of hurting yourself in some way: not at all Total score: 0 Depression Screening Interpretation: Negative Depression Screening Done: Yes Source: Developed by Drs. Rober Gilman, Delma Timmons, Gabriel Malin and colleagues, with an educational kacey from [employer]. Thrive Questionnaire Date Thrive assessed: 08/28/23 I am a: Patient What is your living situation today?: I have a steady place to live Within the past 12 months, did the food you bought not last and you didn't have the money to get more?: Never true Within the past 12 months, did you worry whether your food would run out before you got money to buy more?: Never true Do you have trouble paying for medicines?: No Do you have trouble getting transportation to medical appointments?: No Do you have trouble paying your heating and electricity bill?: No Do you have trouble taking care of your child, family member or friend?: No Do you have trouble with day-to-day activities such as bathing, preparing meals, shopping, managing finances, etc.?: No Are you currently unemployed and looking for a job?: No Are you interested in more education?: No Currently or been in a relationship where the following occur: no concerns reported THRIVE Score: 0 AUDIT C Alcohol Use Questionnaire (AUDIT-C) 1. How often do you have a drink containing alcohol?: 2-3 times a week 2. How many drinks containing alcohol do you have on a typical day when you are drinking?: 1 or 2 Total Score: 3 CAMILLA-7 AMB Questionnaire CAMILLA-7 Date CAMILLA - 7 assessed: 08/28/23 Feeling nervous, anxious, or on edge: 0 = Not at all Not being able to stop or control worryin = Not at all Worrying too much about different things: 0 = Not at all Trouble relaxin = Not at all Being so restless that it is hard to sit still: 0 = Not at all Becoming easily annoyed or irritable: 0 = Not at all Feeling afraid as if something awful might happen: 0 = Not at all Total CAMILLA-7 score (0-4 normal; 5-9 mild; 10-14 moderate; 15-21 severe): 0 Source: Developed by Drs. Rober Gilman, Delma Timmons, Gabriel Malin and colleagues, with an educational kacey from [employer]. Physical exam (Primary Care) Vital Signs: Last Vital Signs Pulse 82 08/28/23 08:24 BP 142/88 H 08/28/23 08:24 Pulse Ox 96 08/28/23 08:24 Oxygen Delivery Method Room Air 08/28/23 08:24 BMI result Body Mass Index 27.5 Tobacco/Smoking Status: Tobacco use Status Tobacco use date assessed 08/28/23 08/28/23 08:31 Patient Tobacco Use Status Former Tobacco user 08/28/23 08:31 Tobacco use type Cigarette 08/28/23 08:31 e-Cigarette/Vaping Use Never Used 08/28/23 08:31 PHQ-9: PHQ-9 Score PHQ-9: Total score 0 08/28/23 08:31 Depression Screening Interpretation: Negative Thrive Assessment: Date of Thrive Assessment Date Thrive assessed 08/28/23 08/28/23 08:31 Currently or been in a relationship where the following occur: no concerns reported Const General: cooperative and healthy appearing Nutritional Appearance: well nourished Orientation/consciousness: patient oriented x3 Limitations: no limitations HENMT Head: Yes normal to inspection Face and sinus: Yes normal facial exam, Yes sinuses nontender and Yes other (Nasal septum: Erythematous, inferior turbinate is swollen.) Eyes General: appearance normal, both eyes and all related structures Neck Neck: Yes normal visual inspection Chest Chest palpation & inspection: normal palpation of entire chest wall Resp Effort & Inspection: normal respiratory effort Neuro General: patient oriented x3 Assessment and Plan Assessment & Plan (1) Acquired hypothyroidism: Code(s): E03.9 - Hypothyroidism, unspecified Plan: Synthroid has been ordered. TSH has been ordered. Will call with results. (2) PURA (acute kidney injury): Code(s): N17.9 - Acute kidney failure, unspecified Plan: Blood work has been requested. (3) Allergic rhinitis: Code(s): J30.9 - Allergic rhinitis, unspecified Plan: Patient was advised to discontinue or use Afrin very sparingly. This can cause rebound rhinorrhea and vasomotor rhinitis. Flonase, Singulair and Zyrtec were prescribed. An ENT referral has been suggested. Orders: Orders Basic Metabolic Panel Today E03.9 - Hypothyroidism, unspecified, N17.9 - Acute kidney failure, unspecified Lipid Panel Today E03.9 - Hypothyroidism, unspecified, N17.9 - Acute kidney failure, unspecified Liver Panel Today E03.9 - Hypothyroidism, unspecified, N17.9 - Acute kidney failure, unspecified Complete Blood Count no Diff Today E03.9 - Hypothyroidism, unspecified, N17.9 - Acute kidney failure, unspecified Thyroid Stimulating Hormone Today E03.9 - Hypothyroidism, unspecified, N17.9 - Acute kidney failure, unspecified UA and rflx microscopic Today E03.9 - Hypothyroidism, unspecified, N17.9 - Acute kidney failure, unspecified CT sinus wo IV con Today J34.2 - Deviated nasal septum Referrals Ear/Nose/Throat Referral J34.2 - Deviated nasal septum Coding Level of Care Code Est Pt Level 4 (33572) Diagnoses Acquired hypothyroidism E03.9 PURA (acute kidney injury) N17.9 Allergic rhinitis J30.9
== END 2023-08-28 09:01 | disposition home or self-care (01) ==
PROVIDERS: PCP Internal Medicine; Visit Provider Internal Medicine
DX: E03.9 Hypothyroidism, unspecified (principal); N17.9 Acute kidney failure, unspecified; J30.9 Allergic rhinitis, unspecified
CPT/HCPCS: 99214

== ENCOUNTER 2023-08-28 09:06 | Outpatient (REF) | payer OTHER, SELFPAY ==
[2023-08-28 09:49] LABS: Appearance Urine Clear; Color Urine Yellow; Glucose Urine UA Negative (Negative); Leukocyte Esterase Urine Negative (Negative); Nitrite Urine Negative (Negative); Urine Blood Negative (Negative); Urine Ketones Negative (Negative); Urine Protein Negative (Neg-Trace)
[2023-08-28 09:50] LABS: Hemoglobin 14.1 g/dl (14.0-18.0); Mean Corpuscular HGB Conc 33.6 g/dl (31.0-36.0); Mean Corpuscular Volume 86.4 fL (80.0-98.0); Platelet Count 202 X10*3/uL (160-400); Red Blood Count 4.86 X10*6/uL (4.60-5.80); Red Cell Distribution Width 12.2 % (11.0-16.0)
[2023-08-28 10:52] LABS: Alanine Aminotransferase 11 U/L (0-40); Albumin Level 4.3 g/dL (3.5-5.0); Alkaline Phosphatase 40 U/L (39-117); Anion Gap 11 (12-20); Aspartate Amino Transferase 17 U/L (5-37); Bilirubin Direct 0.1 mg/dL (0.0-0.5); Bilirubin Total 0.5 mg/dL (0.0-1.0); Blood Urea Nitrogen 13 mg/dL (9-16); Calcium 9.5 mg/dL (8.4-10.2); Carbon Dioxide 29 mmol/L (22-29); Chloride 106 mmol/L (96-108); Cholesterol 183 mg/dL (<200); Estimated Glomerular Filt Rate > 60; Glucose Random 90 mg/dL (60-115); HDL Cholesterol 38 mg/dL (>40); LDL Cholesterol Calculated 121 mg/dL (<100); Potassium 4.2 mmol/L (3.3-5.1); Sodium 142 mmol/L (135-145); Total Protein 6.9 g/dL (6.5-8.0); Triglycerides 124 mg/dL (<150)
[2023-08-28 10:55] LABS: Thyroid Stimulating Hormone 6.94 uIU/mL (0.32-4.0)
== END 2023-08-28 09:07 | disposition home or self-care (01) ==
LOC: HO.LAB 09:06
PROVIDERS: PCP Internal Medicine; Visit Provider Internal Medicine
DX: E03.9 Hypothyroidism, unspecified (principal); N17.9 Acute kidney failure, unspecified
CPT/HCPCS: 36415; 80048; 80061; 80076; 81003; 84443; 85027

== ENCOUNTER 2023-10-10 07:25 | Outpatient (REF) | payer OTHER, SELFPAY ==
--- NOTE | ~2023-10-10 | CT_ITS ---
CT SINUS WITHOUT CONTRAST CLINICAL INFORMATION: Deviated nasal septum. COMPARISON: None available. TECHNIQUE: Multidetector CT acquisition of the sinuses obtained without contrast This CT examination was performed using dose optimization techniques as appropriate, variously including the following: *Automated exposure control *Adjustment of mA and/or kV according to patient size (this includes techniques or standardized protocols for targeted exams where dose is matched to indication/reason for exam; i.e. extremities or head) *Use of iterative reconstruction technique FINDINGS: Maxillary sinuses, sphenoid sinuses, ethmoid air cells, and frontal sinuses are clear. There is rightward deviation of the lower nasal septum with a rightward directed septal spur and there is leftward deviation of the upper nasal septum. The fovea ethmoidalis and olfactory grooves are symmetric in depth. The bony orbits are intact. Internal carotid arteries remain well covered with bone. There is a small right mastoid effusion. The left mastoid air cells are clear. Middle ear cavities are clear. The TMJs are unremarkable. There is no periapical disease. Partially imaged intracranial compartment is unremarkable. CT/CT sinus wo IV con IMPRESSION: - There is rightward deviation of the lower nasal septum with a rightward directed septal spur and there is leftward deviation of the upper nasal septum. - No active sinus disease. - Small right mastoid effusion.
== END 2023-10-10 07:26 | disposition home or self-care (01) ==
LOC: HO.CT 07:25
PROVIDERS: PCP Internal Medicine; Visit Provider Internal Medicine
DX: J34.2 Deviated nasal septum (principal)
CPT/HCPCS: 70486

== ENCOUNTER 2024-02-29 09:14 | Outpatient (AMB) | payer OTHER, SELFPAY ==
--- NOTE | 2024-02-29 09:15 | A.OFFPC_ITS ---
Vital Signs 02/29/24 09:16 Height 5 ft 7.5 in Weight 181 lb 8 oz BMI 28.0 BP 110/70 Blood Pressure Location Lt brachial Position Sitting Pulse 74 Pulse Source Pulse Oximeter Pulse Oximetry (%) 98 Oxygen Delivery Method Room Air Intake Visit Reasons: Annual exam Intake Note: Patient is here today for a physical. French Binding Folder Required: No Manager Engine: Not Required per policy Accompanied by: Self / Same As Patient Allergies No Known Allergies Allergy (Verified 02/29/24 10:18) Medication List - Last Reconciled 02/29/24 by Oc Black MD cetirizine (Zyrtec) 10 mg PO DAILY PRN fluticasone propionate 50 mcg/actuation (Flonase Allergy Relief) 1 spray intranasal DAILY 30 days levothyroxine 75 mcg PO DAILY montelukast (Singulair) 10 mg PO BEDTIME Tobacco use date assessed: 02/29/24 Dental Screening Dental Screen Date: 08/28/23 HPI Annual exam HPI Details 44-year-old male presents to the office requesting an annual physical. FORMERLY [facility], [facility] Medical History Allergic rhinitis Hypothyroidism Surgical History No pertinent past surgical history Family History Mother CAD (coronary artery disease), Onset Age: 62 Mental health disorder Brother Mental health disorder Social History Household Members: Spouse and Children Housing: House Do you presently have visiting nurse or other home services: No Alcohol intake: current Alcohol intake frequency: does not drink Alcohol type: beer Patient Tobacco Use Status: Former Tobacco user Tobacco use type: Cigarette e-Cigarette/Vaping Use: Never Used Second Hand Smoke Exposure: Yes service: Yes Current occupational status: employed and other Cognitive needs: No Hearing needs: No Vision needs: Yes Questionnaire PHQ-9 Over the last 2 weeks, how often have you been bothered by any of the following problems? 1. Little interest or pleasure in doing things: not at all 2. Feeling down, depressed, or hopeless: not at all 3. Trouble falling or staying asleep, or sleeping too much: more than half the days 4. Feeling tired or having little energy: more than half the days 5. Poor appetite or overeating: not at all 6. Feeling bad about yourself - or that you are a failure or have let yourself or your family down: not at all 7. Trouble concentrating on things, such as reading the newspaper or watching television: not at all 8. Moving or speaking so slowly that other people could have noticed. Or the opposite - being so fidgety or restless that you have been moving around a lot more than usual: not at all 9. Thoughts that you would be better off or of hurting yourself in some way: not at all Total score: 4 Depression Screening Interpretation: Positive Depression Screening Done: Yes Source: Developed by Drs. Rober Gilman, Delma Timmons, Gabriel Malin and colleagues, with an educational kacey from [employer]. Thrive Questionnaire Date Thrive assessed: 02/29/24 I am a: Patient What is your living situation today?: I have a steady place to live Within the past 12 months, did the food you bought not last and you didn't have the money to get more?: Never true Within the past 12 months, did you worry whether your food would run out before you got money to buy more?: Never true Do you have trouble paying for medicines?: No Do you have trouble getting transportation to medical appointments?: No Do you have trouble paying your heating and electricity bill?: No Do you have trouble taking care of your child, family member or friend?: No Do you have trouble with day-to-day activities such as bathing, preparing meals, shopping, managing finances, etc.?: No Are you currently unemployed and looking for a job?: No Are you interested in more education?: No Please select the resources that you would like help with: None Currently or been in a relationship where the following occur: No concerns reported THRIVE Score: 0 AUDIT C Alcohol Use Questionnaire (AUDIT-C) 1. How often do you have a drink containing alcohol?: Never 2. How many drinks containing alcohol do you have on a typical day when you are drinking?: 1 or 2 3. How often do you have six or more drinks on one occasion?: Never Total Score: 0 CAMILLA-7 AMB Questionnaire CAMILLA-7 Date CAMILLA - 7 assessed: 02/29/24 Feeling nervous, anxious, or on edge: 0 = Not at all Not being able to stop or control worryin = Not at all Worrying too much about different things: 0 = Not at all Trouble relaxin = More than half the days Being so restless that it is hard to sit still: 2 = More than half the days Becoming easily annoyed or irritable: 1 = Several days Feeling afraid as if something awful might happen: 0 = Not at all Total CAMILLA-7 score (0-4 normal; 5-9 mild; 10-14 moderate; 15-21 severe): 5 Source: Developed by Drs. Rober Gilman, Delma Timmons, Gabriel Malin and colleagues, with an educational kacey from [employer]. Physical exam (Primary Care) Vital Signs: Last Vital Signs Pulse 74 02/29/24 09:16 BP 110/70 02/29/24 09:16 Pulse Ox 98 02/29/24 09:16 Oxygen Delivery Method Room Air 02/29/24 09:16 BMI result Body Mass Index 28.0 Tobacco/Smoking Status: Tobacco use Status Tobacco use date assessed 02/29/24 02/29/24 09:27 Patient Tobacco Use Status Former Tobacco user 02/29/24 09:27 Tobacco use type Cigarette 02/29/24 09:27 e-Cigarette/Vaping Use Never Used 02/29/24 09:27 PHQ-9: PHQ-9 Score PHQ-9: Total score 4 02/29/24 09:27 Depression Screening Interpretation: Positive Thrive Assessment: Date of Thrive Assessment Date Thrive assessed 02/29/24 02/29/24 09:27 Currently or been in a relationship where the following occur: No concerns reported Const General: cooperative and healthy appearing Nutritional Appearance: well nourished Orientation/consciousness: patient oriented x3 Limitations: no limitations HENMT Head: Yes normal to inspection Eyes General: appearance normal, both eyes and all related structures Neck Neck: Yes normal visual inspection Chest Chest palpation & inspection: normal palpation of entire chest wall Resp Effort & Inspection: normal respiratory effort Neuro General: patient oriented x3 Assessment and Plan Assessment & Plan (1) Annual physical exam: Code(s): Z00.00 - Encounter for general adult medical examination without abnormal findings Plan: Blood work has been ordered. Will call with results. Coding Level of Care Code Est Pt Prev Care 40-64y(15491) Diagnoses Annual physical exam Z00.00
[2024-02-29 09:16] VITALS: BP 110/70; PULSE 74; O2SAT 98; BMI 28.0
== END 2024-02-29 10:15 | disposition home or self-care (01) ==
PROVIDERS: PCP Internal Medicine; Visit Provider Internal Medicine
DX: Z00.00 Encounter for general adult medical examination without abnormal findings (principal)

== ENCOUNTER → 2024-02-29 09:14 | Outpatient (BNVA) | payer OTHER, SELFPAY | PROVIDERS: PCP Internal Medicine; Visit Provider Internal Medicine ==

== ENCOUNTER 2024-03-08 06:47 | Outpatient (REF) | payer OTHER, SELFPAY ==
[2024-03-08 07:23] LABS: Appearance Urine Clear; Color Urine Yellow; Glucose Urine UA Negative (Negative); Leukocyte Esterase Urine Negative (Negative); Nitrite Urine Negative (Negative); PH 5.5 (5.0-9.0); Specific Gravity - Urine 1.025 (1.005-1.025); Urine Blood Negative (Negative); Urine Ketones Negative (Negative); Urine Protein Negative (Neg-Trace)
[2024-03-08 08:07] LABS: Alanine Aminotransferase 18 U/L (0-40); Albumin Level 4.2 g/dL (3.5-5.0); Alkaline Phosphatase 40 U/L (39-117); Anion Gap 11 (12-20); Aspartate Amino Transferase 19 U/L (5-37); Bilirubin Direct 0.1 mg/dL (0.0-0.5); Bilirubin Total 0.4 mg/dL (0.0-1.0); Blood Urea Nitrogen 17 mg/dL (9-16); Calcium 9.5 mg/dL (8.4-10.2); Carbon Dioxide 26 mmol/L (22-29); Chloride 108 mmol/L (96-108); Cholesterol 192 mg/dL (<200); Estimated Glomerular Filt Rate > 60; Glucose Random 116 mg/dL (60-115); HDL Cholesterol 41 mg/dL (>40); LDL Cholesterol Calculated 134 mg/dL (<100); Potassium 4.3 mmol/L (3.3-5.1); Sodium 141 mmol/L (135-145); Total Protein 6.7 g/dL (6.5-8.0); Triglycerides 86 mg/dL (<150)
[2024-03-08 08:21] LABS: Thyroid Stimulating Hormone 4.82 uIU/mL (0.32-4.0)
== END 2024-03-08 06:48 | disposition home or self-care (01) ==
LOC: HO.LAB 06:47
PROVIDERS: PCP Internal Medicine; Visit Provider Internal Medicine
DX: E03.9 Hypothyroidism, unspecified (principal)
CPT/HCPCS: 36415; 80048; 80061; 80076; 81003; 84443

== ENCOUNTER 2025-03-05 08:38 | Outpatient (AMB) | payer BC, SELFPAY ==
--- NOTE | 2025-03-05 08:43 | MHC.PC.OV ---
Vital Signs 03/05/25 08:45 Height 5 ft 7.5 in Weight 181 lb BMI 27.9 BP 120/72 Blood Pressure Location Lt brachial Position Sitting Pulse 79 Pulse Source Pulse Oximeter Temp 97.3 F Temp Source Temporal Artery Scan Pulse Oximetry (%) 98 Oxygen Delivery Method Room Air Intake Visit Reasons: Annual Exam - see comments Intake Note: Patient is here today for a physical. 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 Required: No Biomedical Engineering Director: Not Required per policy Accompanied by: Self / Same As Patient Allergies No Known Allergies Allergy (Verified 03/05/25 08:44) Tobacco use date assessed: 03/05/25 Dental Screening Dental Screen Date: 03/05/25 Did you have a dental visit in the last 12 months?: No Did you have a dental problem in the last 6 months where you did not have access to dental care?: No Was dental information given to patient?: Patient has dentist [facility] Medical History Allergic rhinitis Hypothyroidism Surgical History No pertinent past surgical history Family History Mother CAD (coronary artery disease), Onset Age: 62 Mental health disorder Brother Mental health disorder Social History (Updated 03/05/25 @ 08:49 by ASHLYN Kaur) Household Members: Spouse and Children Housing: House Do you presently have visiting nurse or other home services: No Alcohol intake: current Alcohol intake frequency: holidays/special occasions only Alcohol type: beer Patient Tobacco Use Status: Former Tobacco user Tobacco use type: Cigarette e-Cigarette/Vaping Use: Never Used Second Hand Smoke Exposure: Yes service: Yes Current occupational status: employed and other Cognitive needs: No Hearing needs: No Vision needs: Yes (Reading glasses) Questionnaire PHQ-9 Over the last 2 weeks, how often have you been bothered by any of the following problems? 1. Little interest or pleasure in doing things: not at all 2. Feeling down, depressed, or hopeless: not at all 3. Trouble falling or staying asleep, or sleeping too much: several days 4. Feeling tired or having little energy: several days 5. Poor appetite or overeating: not at all 6. Feeling bad about yourself - or that you are a failure or have let yourself or your family down: not at all 7. Trouble concentrating on things, such as reading the newspaper or watching television: not at all 8. Moving or speaking so slowly that other people could have noticed. Or the opposite - being so fidgety or restless that you have been moving around a lot more than usual: not at all 9. Thoughts that you would be better off or of hurting yourself in some way: not at all Total score: 2 Depression Screening Interpretation: Positive Depression Screening Done: Yes Source: Developed by Drs. Rober Gilman, Delma Timmons, Gabriel Malin and colleagues, with an educational kacey from [employer]. Thrive Questionnaire Date Thrive assessed: 03/05/25 I am a: Patient What is your living situation today?: I have a steady place to live Within the past 12 months, did the food you bought not last and you didn't have the money to get more?: Never true Within the past 12 months, did you worry whether your food would run out before you got money to buy more?: Never true Do you have trouble paying for medicines?: No Do you have trouble getting transportation to medical appointments?: No Do you have trouble paying your heating and electricity bill?: No Do you have trouble taking care of your child, family member or friend?: No Do you have trouble with day-to-day activities such as bathing, preparing meals, shopping, managing finances, etc.?: No Are you currently unemployed and looking for a job?: No Are you interested in more education?: No Please select the resources that you would like help with: None Currently or been in a relationship where the following occur: No concerns reported THRIVE Score: 0 AUDIT C Alcohol Use Questionnaire (AUDIT-C) 1. How often do you have a drink containing alcohol?: Monthly or less 2. How many drinks containing alcohol do you have on a typical day when you are drinking?: 3 or 4 3. How often do you have six or more drinks on one occasion?: Never Total Score: 2 CAMILLA-7 AMB Questionnaire CAMILLA-7 Date CAMILLA - 7 assessed: 03/05/25 Feeling nervous, anxious, or on edge: 2 = More than half the days Not being able to stop or control worryin = Several days Worrying too much about different things: 1 = Several days Trouble relaxin = Several days Being so restless that it is hard to sit still: 1 = Several days Becoming easily annoyed or irritable: 1 = Several days Feeling afraid as if something awful might happen: 0 = Not at all Total CAMILLA-7 score (0-4 normal; 5-9 mild; 10-14 moderate; 15-21 severe): 7 Source: Developed by Drs. Rober Gilman, Delma Timmons, Gabriel Malin and colleagues, with an educational kacey from [employer]. Physical exam (Primary Care) Vital Signs: Last Vital Signs Temp 97.3 F 03/05/25 08:45 Pulse 79 03/05/25 08:45 BP 120/72 03/05/25 08:45 Pulse Ox 98 03/05/25 08:45 Oxygen Delivery Method Room Air 03/05/25 08:45 BMI result Body Mass Index 27.9 Tobacco/Smoking Status: Tobacco use Status Tobacco use date assessed 03/05/25 03/05/25 08:50 Patient Tobacco Use Status Former Tobacco user 03/05/25 08:50 Tobacco use type Cigarette 03/05/25 08:50 e-Cigarette/Vaping Use Never Used 03/05/25 08:50 PHQ-9: PHQ-9 Score PHQ-9: Total score 2 03/05/25 08:50 Depression Screening Interpretation: Positive Thrive Assessment: Date of Thrive Assessment Date Thrive assessed 03/05/25 03/05/25 08:50 Currently or been in a relationship where the following occur: No concerns reported Coding Level of Care Code Est Pt Level 4 (63556) Complex EM visit Add On G2211 Diagnoses Acquired hypothyroidism E03.9 Allergic rhinitis J30.9 Assessment & Plan Assessment & Plan (1) Acquired hypothyroidism: Code(s): E03.9 - Hypothyroidism, unspecified Category: Medical Plan: BW ordered, will call with results (2) Allergic rhinitis: Code(s): J30.9 - Allergic rhinitis, unspecified Category: Medical Plan: Continue current medications Plan History of Present Illness - The patient is a 45-year-old male presenting with a physical examination and medication management. - Anxiety disorder: Reports worsening anxiety over the past year, characterized by constant worrying and feeling like he is missing something. - [facility] but [facility] so. - Sleep disturbances: Previously used trazodone for sleep but experienced nightmares and poor sleep quality. - Medication management: Has not taken medications, including Synthroid and Flonase, due to a lapse in insurance coverage. - Preventative care: Eligible for colon cancer screening and has opted for the Cologuard test. Social History - Employment: The patient has a new job and his also has a new job. - service: The patient is in the [employer] and has served overseas in [place] and [place]. Review of Systems - Psychiatric: Reports anxiety and sleep disturbances. - General: Denies any physical health concerns. Physical Exam General: Cooperative and healthy appearing Nutritional Appearance: Well nourished Orientation/consciousness: Patient oriented x3 Limitations: No limitations Head: Normal to inspection General: Appearance normal, both eyes and all related structures Neck: Normal visual inspection Chest: Normal palpation of entire chest wall Respiratory: N ormal respiratory effort Neurology: Patient oriented x3, but reports increased anxiety. Results Plan - Order blood work to be done fasting. - Discussed colon cancer screening options; patient opted for Cologuard. - Address anxiety with potential medication options, but patient prefers to [facility]. Discussion Notes I discussed the importance of regular screenings and offered options for colon cancer screening, recommending Cologuard due to the patient's lack of symptoms and family history. We also addressed his anxiety, considering medication options, but he prefers to [facility]. Follow-up for blood work was arranged. Patient Instructions - Complete fasting blood work as scheduled. - Follow up with the [facility] for anxiety management. - Complete the Cologuard test as instructed. Orders: Orders Basic Metabolic Panel Today E03.9 - Hypothyroidism, unspecified, J30.9 - Allergic rhinitis, unspecified Lipid Panel Today E03.9 - Hypothyroidism, unspecified, J30.9 - Allergic rhinitis, unspecified Thyroid Stimulating Hormone Today E03.9 - Hypothyroidism, unspecified, J30.9 - Allergic rhinitis, unspecified Complete Blood Count no Diff Today E03.9 - Hypothyroidism, unspecified, J30.9 - Allergic rhinitis, unspecified Liver Panel Today E03.9 - Hypothyroidism, unspecified, J30.9 - Allergic rhinitis, unspecified UA and rflx microscopic Today E03.9 - Hypothyroidism, unspecified, J30.9 - Allergic rhinitis, unspecified Referrals Cologuard Test Z12.11 - Encounter for screening for malignant neoplasm of colon, Z12.12 - Encounter for screening for malignant neoplasm of rectum Medications: Refilled cetirizine (Zyrtec) 10 mg PO DAILY PRN 90 tabs 1RF allergy symptoms levothyroxine 75 mcg PO DAILY 90 tabs 1RF montelukast (Singulair) 10 mg PO BEDTIME 90 tabs 1RF fluticasone propionate 50 mcg/actuation (Flonase Allergy Relief) administer into each nostril 1 spray intranasal DAILY 9.9 mL 1RF 30 days Discontinued trazodone Discontinued Reason: Doctor's Order 50 mg PO BEDTIME PRN 90 tabs 0RF sleep
[2025-03-05 08:45] VITALS: BP 120/72; PULSE 79; TEMP 36.3; O2SAT 98; BMI 27.9
== END 2025-03-05 09:14 | disposition home or self-care (01) ==
LOC: HO.HMCH 08:39
PROVIDERS: PCP Internal Medicine; Visit Provider Internal Medicine
DX: E03.9 Hypothyroidism, unspecified (principal); J30.9 Allergic rhinitis, unspecified

== ENCOUNTER 2025-03-07 08:13 | Outpatient (REF) | payer BC, SELFPAY ==
[2025-03-07 09:58] LABS: Appearance Urine Clear; Glucose Urine UA Negative (Negative); PH 5.5 (5.0-9.0); Specific Gravity - Urine 1.025 (1.005-1.025)
[2025-03-07 10:00] LABS: Hematocrit 42.8 % (42.0-52.0); Hemoglobin 14.4 g/dl (14.0-18.0); Mean Corpuscular HGB Conc 33.6 g/dl (31.0-36.0); Mean Corpuscular Hemoglobin 28.8 pg (27.0-33.0); Mean Corpuscular Volume 85.6 fL (80.0-98.0); NRBC Abs Auto 0.000 X10*3/uL (0.0-0.012); NRBC Pct Auto 0.0 /100WBC (0.0-0.2); Platelet Count 191 X10*3/uL (160-400); Red Blood Count 5.00 X10*6/uL (4.60-5.80); White Blood Count 5.6 X10*3/uL (4.8-10.8)
[2025-03-07 10:41] LABS: Alanine Aminotransferase 20 U/L (0-40); Albumin Level 4.5 g/dL (3.5-5.0); Alkaline Phosphatase 46 U/L (39-117); Anion Gap 11 (12-20); Aspartate Amino Transferase 22 U/L (5-37); Blood Urea Nitrogen 15 mg/dL (9-16); Calcium 9.1 mg/dL (8.4-10.2); Carbon Dioxide 28 mmol/L (22-29); Chloride 107 mmol/L (96-108); Cholesterol 210 mg/dL (<200); Estimated Glomerular Filt Rate > 60; HDL Cholesterol 40 mg/dL (>40); Potassium 4.3 mmol/L (3.3-5.1); Sodium 142 mmol/L (135-145); Total Protein 6.7 g/dL (6.5-8.0); Triglycerides 109 mg/dL (<150)
[2025-03-07 10:57] LABS: Thyroid Stimulating Hormone 8.73 uIU/mL (0.32-4.0)
== END 2025-03-07 08:14 | disposition home or self-care (01) ==
LOC: HO.LAB 08:13
PROVIDERS: PCP Internal Medicine; Visit Provider Internal Medicine
DX: E03.9 Hypothyroidism, unspecified (principal); J30.9 Allergic rhinitis, unspecified
CPT/HCPCS: 36415; 80048; 80061; 80076; 81003; 84443; 85027